=== PATIENT | male | born 1950 | race Caucasian/White ===

== ENCOUNTER → 2023-07-07 03:29 | Outpatient (CLI) | payer BC, SELFPAY ==
--- NOTE | 2023-07-07 08:00 | DI.RAD_ITS ---
Exam(s) XR FOOT RT COMPLETE EXAM: XR FOOT RT COMPLETE CLINICAL HISTORY: Right foot pain,M79.671. TECHNIQUE: 2D digital imaging was performed. COMPARISON: No exams were available for comparison FINDINGS: 3 views No evidence of acute fracture nor diastasis of the Lisfranc joint. There is prominent hallux valgus. Mild narrowing of the great toe metatarsophalangeal joint. No pro minent osteophytes at this level. Moderate size inferior calcaneal spur noted. There is also calcif ication at the insertional aspect of the Achilles tendon on the posterior calcaneus.. IMPRESSION: Prominent hallux valgus. DATA REPOSITORY: RADIATION DOSE DELIVERED:
== END ==
PROVIDERS: PCP Family Medicine; Visit Provider Podiatrist
DX: M20.11 Hallux valgus (acquired), right foot (principal)
CPT/HCPCS: 73630